=== PATIENT | male | born 1960 | race Caucasian/White ===

== ENCOUNTER → 2021-01-28 | Outpatient (REF) ==
--- NOTE | 2021-01-28 12:45 | REP ---
INDICATION: PAIN RIGHT SHOULDER. COMPARISON: None. TECHNIQUE: Three views of the right shoulder were performed. FINDINGS: There is asymmetric AC joint space narrowing with slight osteophytosis. There is prominent humeral head marginal osteophytosis with evidence of glenoid subchondral cyst formation. There is a 7 mm size nodule in the right lung upper lobe. This might be at least partially calcified. IMPRESSION: 1. Glenohumeral and acromioclavicular degenerative changes as described above. 2. Right lung nodule as described above. There are no priors comparison. Contrast-enhanced CT of the chest is recommended. <Electronically signed by Harvey Huff > 01/28/21 0795
== END ==
LOC: M PLAIMG 12:04
PROVIDERS: ATTEND Internal Medicine
DX: M25.511 Pain in right shoulder (principal); R91.1 Solitary pulmonary nodule; M19.011 Primary osteoarthritis, right shoulder